=== PATIENT | female | born 1995 | race Caucasian/White ===

== ENCOUNTER → 2021-03-09 | Outpatient (CLI) | payer BC ==
[2021-03-09 18:48] LABS: HEMOGLOBIN 13.3 gm/dl (12.3-15.3); RED BLOOD COUNT 4.7 M/UL (4.00-5.10); WHITE BLOOD COUNT 7.7 K/UL (4.5-11.0)
[2021-03-09 19:05] LABS: BUN/CREATININE RATIO 13 (0-10)
== END ==
LOC: LAB 18:02
PROVIDERS: Family Medicine
DX: R55 Syncope and collapse (principal); Z83.3 Family history of diabetes mellitus; K21.9 Gastro-esophageal reflux disease without esophagitis
CPT/HCPCS: 80053; 83036; 84443; 85025